=== PATIENT | female | born 1985 | race Caucasian/White ===

== ENCOUNTER 2016-10-20 19:05 | Emergency (ER) | payer OTHER ==
[2016-10-20 19:13] VITALS: BP 121/78; PULSE 84; RESP 18; TEMP 98
--- NOTE | 2016-10-20 19:31 | ED ---
General Adult HPI - General Chief complaint: Abdominal Pain Stated complaint: 9wks preg, leaking fluid Time Seen by Provider: 10/20/16 19:15 Source: patient, RN notes reviewed Mode of arrival: ambulatory Limitations: no limitations - History of Present Illness Initial comments: 31-year-old female presents to the emergency Department chief complaint of a discharge. Patient states she is 9 weeks . Patient states she has had a whitish clear discharge for the past 2 days. There is no pain there is no itching there is no odor. Patient denies any concern for STDs. He denies any bleeding she denies any abdominal pain states she has had some nausea and vomiting associated with this . Patient states she was concerned due to the discharge so she thought that she should be seen. Patient denies any recent fever, chills, shortness of breath, chest pain, back pain, abdominal pain , nausea vomiting, numbness or tingling, dysuria or hematuria, constipation or diarrhea, headaches or visual changes, or any other current symptoms. - Related Data Home Medications Medication Instructions Recorded Confirmed Acetaminophen Tab [Tylenol Tab] 500 mg PO Q6HR PRN 10/20/16 10/20/16 Allergies Allergy/AdvReac Type Severity Reaction Status Date / Time No Known Allergies Allergy Verified 10/20/16 19:28 Review of Systems ROS Statement: Those systems with pertinent positive or pertinent negative responses have been documented in the HPI. ROS Other: All systems not noted in ROS Statement are negative. Past Medical History Past Medical History: No Reported History History of Any Multi-Drug Resistant Organisms: None Reported Past Surgical History: Section Past Psychological History: No Psychological Hx Reported Smoking Status: Current every day smoker Past Alcohol Use History: None Reported Past Drug Use History: Marijuana General Exam Limitations: no limitations General appearance: alert, in no apparent distress Neck exam: Present: normal inspection. Absent: tenderness, meningismus, lymphadenopathy Respiratory exam: Present: normal lung sounds bilaterally. Absent: respiratory distress, wheezes, rales, rhonchi, stridor Cardiovascular Exam: Present: regular rate, normal rhythm, normal heart sounds. Absent: systolic murmur, diastolic murmur, rubs, gallop, clicks External exam: Present: normal external exam Speculum exam: Present: vaginal discharge (white) Neurological exam: Present: alert, oriented X3 Psychiatric exam: Present: normal affect, normal mood Skin exam: Present: warm, dry, intact, normal color. Absent: rash Course Vital Signs 10/20/16 19:09 Temperature 98.0 F Pulse Rate 84 Respiratory 18 Rate Blood Pressure 121/78 O2 Sat by Pulse 97 Oximetry Medical Decision Making - Medical Decision Making 31-year-old female presents for vaginal discharge in . The sinuses appears to consistently vaginal discharge in . We did discuss this with the patient. 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 We discussed return parameters all the questions. She stated that she understood and she is given plan. This time she'll be discharged home. - Lab Data Lab Results 10/20/16 Range/Units 19:25 Urine Color Yellow Urine Appearance Clear (Clear) Urine pH 5.5 (5.0-8.0) Ur Specific [place] 1.023 (1.001-1.035) Urine Protein Negative (Negative) Urine Glucose (UA) Negative (Negative) Urine Ketones 1+ H (Negative) Urine Blood Negative (Negative) Urine Nitrite Negative (Negative) Urine Bilirubin Negative (Negative) Urine Urobilinogen <2.0 (<2.0) mg/dL Ur Leukocyte Esterase Negative (Negative) Disposition Clinical Impression: Vaginal discharge during in first trimester Disposition: HOME SELF-CARE Condition: Stable Instructions: Vaginal Discharge (ED) Additional Instructions: Please follow up with family doctor if symptoms have not improved over the next two days. Please return to the emergency room if your symptoms increase or worsen or for any other concerns. Referrals: Mili Queen MD [Primary Care Provider] - 1-2 days Time of Disposition: 20:25
[2016-10-20 19:42] LABS: Appearance,Urine Clear (Clear); Bilirubin,Urine Negative (Negative); Glucose,Urine (UA) Negative (Negative); Ketones,Urine 1+ (Negative); Leukocyte Esterase,Urine Negative (Negative); Nitrite,Urine Negative (Negative); PH, Urine 5.5 (5.0-8.0); Protein,Urine Negative (Negative); Specific Gravity,Urine 1.023 (1.001-1.035); UA Billing (MACRO vs. MICRO) CHEM; Urobilinogen,Urine <2.0 mg/dL (<2.0)
== END 2016-10-20 20:28 | disposition home or self-care (01) ==
LOC: EC 19:05
DX: O99.89 Other specified diseases and conditions complicating pregnancy, childbirth and the puerperium (principal); N89.8 Other specified noninflammatory disorders of vagina; O99.331 Smoking (tobacco) complicating pregnancy, first trimester; F17.200 Nicotine dependence, unspecified, uncomplicated; Z3A.09 9 weeks gestation of pregnancy
CPT/HCPCS: 81003; 87070; 87086; 87205; 99284

== ENCOUNTER → 2016-11-30 | Outpatient (CLI) | payer OTHER ==
--- NOTE | 2016-11-30 15:28 | US ---
EXAMINATION TYPE: US OB >= 14 wk fetus DATE OF EXAM: 11/30/2016 COMPARISON: None CLINICAL HISTORY: 31-year-old female Z34.90 SUPERVISION OF NORMAL ; , smoker, confirm da tani TECHNIQUE: Transabdominal (TA) FINDINGS: GESTATIONAL AGE / DATING Physician Established: Not yet established Dates by LMP: patient unsure of LMP by one month (reported as 08/29/2016) Gestational age by LMP: 13 weeks 2 days EDC: 06/05/2017 Dates by First Scan: No previous this is first scan Dates by Current Scan: (15 weeks/2 days +/- 1 week 0 days) EDC: 05/22/2017 Beta HCG (if available): NA SURVEY IUP: Single PLACENTA: Posterior PREVIA: Marginal placenta previa. On the initial images, there is a focal anterior contraction along the lower uterine segment. YURIDIA: 11.1 cm Normal CERVICAL LENGTH (transabdominal: norm > 3.0cm): 3.1 cm BIOMETRY PRESENTATION: Breech LIE: Transverse with head maternal Left BPD: 2.9 cm 15 weeks / 1 day HC: 10.6 cm 15 weeks / 0 days AC: 8.9 cm 15 weeks / 1 day FL: 1.6 cm 14 weeks / 6 days ESTIMATED WEIGHT IN GRAMS: 111.2 grams ESTIMATED WEIGHT IN LBS/OZ: 0 lbs. 4 oz. WEIGHT PERCENTAGE BASED ON DAVID for LMP from patient: >97% HC/AC: 1.19 Normal FL/AC: 18.32 Normal HEART RATE: 146 bpm and assessed x 2 for regular rhythm due to active fetus RHYTHM: Normal ADA ACCOMMODATION CONSULTANT NOTES: Single, live, IUP,15 weeks/2 days, EDC: 05/22/2017, HR 146 BPM. IMPRESSION: 1. Single live intrauterine with average gestational age of 15 weeks 2 days by current ultr asound biometry. This is larger and frankly discordant with gestational age by estimated LMP. 2. Note marginal placenta previa. Follow-up recommended. 3. Complete survey recommended at 18-20 weeks.
--- NOTE | 2016-11-30 15:51 | US ---
EXAMINATION TYPE: US venous doppler duplex LE DATE OF EXAM: 11/30/2016 2:02 PM COMPARISON: NONE CLINICAL HISTORY: M79.669 LEG PAIN, SWELLING. Left lower lateral ankle swelling with prior skin redne ss at 15 weeks . SIDE PERFORMED: Bilateral TECHNIQUE: The lower extremity deep venous system is examined utilizing real time linear array sonog anna with graded compression, doppler sonography and color-flow sonography. VESSELS IMAGED: Common Femoral Vein Deep Femoral Vein Greater Saphenous Vein * Femoral Vein Popliteal Vein Small Saphenous Vein * Proximal Calf Veins (* superficial vessels) Grayscale, color doppler, spectral doppler imaging performed of the deep veins of the lower extremiti es. There is normal flow, compressibility, vascular waveforms. Right Leg: Negative for DVT Left Leg: Negative for DVT Left Greater Saphenous Vein wall echoes are noted but color flow patency is present and GSV compressi on is noted at upper level. IMPRESSION: No sonographic evidence of deep venous thrombosis of either lower extremity.
== END | disposition home or self-care (01) ==
LOC: RADUSWWP 12:59
PROVIDERS: ATTEND Obstetrics & Gynecology
DX: Z34.92 Encounter for supervision of normal pregnancy, unspecified, second trimester (principal); M79.662 Pain in left lower leg; Z3A.15 15 weeks gestation of pregnancy
CPT/HCPCS: 76805; 93970

== ENCOUNTER → 2017-02-22 | Outpatient (CLI) | payer OTHER ==
--- NOTE | 2017-02-23 08:04 | US ---
EXAMINATION TYPE: US OB anatomy transabd DATE OF EXAM: 02/22/2017 COMPARISON: NONE HISTORY: Z34.90 unspecified trimester normal supervision TECHNIQUE: Transabdominal (TA) EXAM MEASUREMENTS: GESTATIONAL AGE / DATING Physician Established: (27 weeks/2 days) EDC: 05/22/17 Dates by LMP: unknown Dates by First Scan: (27 weeks/2 days) EDC: 05/22/17 Dates by Current Scan for: (26 weeks/3 days) EDC: 05/28/17 SURVEY IUP: Single PLACENTA: Posterior PREVIA: Low Lying YURIDIA: 10.1 cm Normal CERVICAL LENGTH (transabdominal: norm > 3.0cm): 4.0 cm BIOMETRY PRESENTATION: Vertex LIE: Longitudinal BPD: 6.3 cm 25 weeks / 5 days HC: 24.5 cm 26 weeks / 4 days AC: 22.5 cm 26 weeks / 6 days FL: 5.1 cm 27 weeks / 3 days ESTIMATED WEIGHT IN GRAMS: 1008 grams ESTIMATED WEIGHT IN LBS/OZ: 2 lbs. 4 oz. WEIGHT PERCENTAGE BASED ON ESTABLISHED DATE: 26.0 % HC/AC: 1.09 Normal FL/AC: 22.86 Normal HEART RATE: 137 bpm RHYTHM: Normal ANATOMY SEEN (within normal limits): * Lateral Vent (< 1 cm) 0.6 cm * Cisterna Magna (< 1.1 cm) 0.5 cm * Nuchal Fold (< 0.6 cm) 0.4 cm * Cerebellum (varies with age) 3.2 cm Choroid Plexus (bilateral) - possible cystic area noted Midline Falx Cavus Septi Pellucidi Four Chamber Heart Outflow tracts: LVOT/RVOT Stomach Situs Nose / Lips Diaphragm Kidneys (bilateral) Bladder Cord Insert Three Vessel Cord Longitudinal Spine Transverse Spine Arms (bilateral) Legs (bilateral) IMPRESSION: Single viable IUP 26wks/3days with DAVID of 05/28/17. Low lying placenta. Follow-up ultrasound prior to delivery recommended to assess the placenta. Possible Choroid Plexus cyst
== END | disposition home or self-care (01) ==
LOC: RADUSWWP 16:23
PROVIDERS: ATTEND Obstetrics & Gynecology
DX: O44.42 Low lying placenta NOS or without hemorrhage, second trimester (principal); Z3A.26 26 weeks gestation of pregnancy
CPT/HCPCS: 76811

== ENCOUNTER → 2017-03-24 | Outpatient (CLI) | payer OTHER ==
--- NOTE | 2017-03-25 07:04 | US ---
EXAMINATION TYPE: US OB >= 14 wk fetus third trimester DATE OF EXAM: 03/24/2017 COMPARISON: Prior second trimester ultrasound November 30, 2016 CLINICAL HISTORY: Placenta Placement Z34.90Assess growth and placental placement, scheduled for 05/14/2017 TECHNIQUE: OBTA GESTATIONAL AGE / DATING Physician Established: (32 weeks/5 days) EDC: 05/14/2017 Dates by LMP: LMP unknown Dates by First Scan: ( 31weeks/ 4days) EDC: 05/22/2017 Dates by Current Scan: (30 weeks/5 days) EDC: 05/28/2017 SURVEY IUP: Single PLACENTA: Fundal PREVIA: No Previa YURIDIA: 14.8 cm Normal CERVICAL LENGTH (transabdominal: norm > 3.0cm): 3.0 cm BIOMETRY PRESENTATION: Vertex LIE: Longitudinal BPD: 7.5 cm 30 weeks / 1 days HC: 28.7 cm 31 weeks / 4 days AC: 25.9 cm 30 weeks / 1 days FL: 5.9 cm 30 weeks / 6 days ESTIMATED WEIGHT IN GRAMS: 1573 grams ESTIMATED WEIGHT IN LBS/OZ: 3 lbs. 7 oz. WEIGHT PERCENTAGE BASED ON ESTABLISHED DATES: 3% HC/AC: 1.1 Normal FL/AC: 23 Normal HEART RATE: 144 bpm RHYTHM: Normal Single live intrauterine gestation is redemonstrated. Normal cephalad presentation to fetus is seen c urrently. There is no ultrasound evidence for placenta previa. Amniotic fluid index is within normal limits. biometry measurements are congruent and felt within normal limits. IMPRESSION: As above
== END | disposition home or self-care (01) ==
LOC: RADUSWWP 16:26
PROVIDERS: ATTEND Obstetrics & Gynecology
DX: Z34.93 Encounter for supervision of normal pregnancy, unspecified, third trimester (principal); Z3A.32 32 weeks gestation of pregnancy
CPT/HCPCS: 76805

== ENCOUNTER → 2017-05-07 | Outpatient (CLI) | payer OTHER ==
--- NOTE | 2017-05-07 15:02 | US ---
EXAMINATION TYPE: US OB >= 14 wk fetus DATE OF EXAM: 05/07/2017 COMPARISON: None CLINICAL HISTORY: Z34.90 Encounter for supervision of normal TECHNIQUE: Transabdominal (TA) GESTATIONAL AGE / DATING Physician Established: (38 weeks/4 days) EDC: 05/17/17 Dates by LMP: unknown Dates by First Scan: (37 weeks/6 days) EDC: 05/22/17 Dates by Current Scan: (38 weeks/3 days) EDC: 05/18/17 SURVEY IUP: Single PLACENTA: Fundal PREVIA: No Previa YURIDIA: 14.8 cm Normal CERVICAL LENGTH (transabdominal: norm > 3.0cm): 3.0 cm BIOMETRY PRESENTATION: Vertex LIE: Longitudinal BPD: 9.2 cm 37 weeks / 4 days HC: 33.4 cm 38 weeks / 1 days AC: 35.6 cm 39 weeks / 4 days FL: 7.5 cm 38 weeks / 1 days ESTIMATED WEIGHT IN GRAMS: 3605 grams ESTIMATED WEIGHT IN LBS/OZ: 7 lbs. 15 oz. WEIGHT PERCENTAGE BASED ON ESTABLISHED DATES: 72.5% HC/AC: 0.94 Normal FL/AC: 20.97 Normal HEART RATE: 127 bpm RHYTHM: Normal Single viable IUP 38wks/3days with DAVID of 05/18/17 IMPRESSION: Single viable intrauterine corresponding to ultrasound age 38 weeks 3 days with estimated d ate of delivery 05/18/2017. Limited survey.
== END ==
LOC: RADUSWWP 13:37
PROVIDERS: ATTEND Obstetrics & Gynecology
DX: Z34.90 Encounter for supervision of normal pregnancy, unspecified, unspecified trimester (principal)
CPT/HCPCS: 76805

== ENCOUNTER → 2018-09-02 | Outpatient (CLI) | payer OTHER ==
--- NOTE | 2018-09-02 10:57 | XR ---
EXAMINATION TYPE: XR cervical spine limited DATE OF EXAM: 09/02/2018 COMPARISON: NONE HISTORY: Pain TECHNIQUE: 3 views are submitted. FINDINGS: The odontoid is intact. There are no compression deformities. The prevertebral soft tissue structur es are within normal limits. Hypertrophic and degenerative change of the spine noted. The 2 mm anter olisthesis of C3 on C4. Anterior hypertrophic spurring noted. IMPRESSION: 1. Multilevel degenerative disc disease with 2 mm anterolisthesis C3 on C4. MRI recommended..
--- NOTE | 2018-09-02 10:58 | XR ---
EXAM TYPE: LUMBAR SPINE X RAY SERIES COMPARISON: NONE HISTORY: Pain TECHNIQUE: 4 views are submitted. FINDINGS: Alignment is anatomic. The pedicles are intact. The transverse processes are intact. There is no s pondylolisthesis. Facet arthropathy L4-5 and L5-S1. IMPRESSION: 1. Facet arthropathy L4-5 and L5-S1 consider follow-up MRI.
== END | disposition home or self-care (01) ==
LOC: RADXRMAIN 10:28
PROVIDERS: ATTEND Family Medicine
DX: M50.31 Other cervical disc degeneration, high cervical region (principal); M43.12 Spondylolisthesis, cervical region; M46.97 Unspecified inflammatory spondylopathy, lumbosacral region
CPT/HCPCS: 72040; 72100

== ENCOUNTER 2018-10-01 00:12 | Emergency (ER) | payer OTHER ==
[2018-10-01 00:20] VITALS: RESP 18
[2018-10-01] MEDS ORDERED: MAG HYDROX/AL HYDROX/SIMETH 30 ML CUP PO STA (01:20)
[2018-10-01] MEDS ORDERED: KETOROLAC 30 MG/ML 1 ML VIAL IVP STA (01:20)
--- NOTE | 2018-10-01 02:26 | XR ---
EXAM: XR Chest, 2 Views CLINICAL HISTORY: ITS.REASON XR Reason: Chest Pain TECHNIQUE: Frontal and lateral views of the chest. COMPARISON: 11/23/13. FINDINGS: Lungs: Mild perihilar/infrahilar opacities, possible atelectasis. Pleural space: No significant pleural effusion or pneumothorax. Heart: Unremarkable. Mediastinum: Unremarkable. Bones/joints: No acute fracture. IMPRESSION: Mild perihilar/infrahilar opacities, possible atelectasis. Correlate clinically to exclude developing infiltrate.
[2018-10-01 03:03] LABS: Basophils # (A) 0.1 k/uL (0-0.2); Basophils % (A) 0 %; Eosinophils # (A) 0.2 k/uL (0-0.7); Eosinophils % (A) 2 %; HCT 35.9 % (34.0-46.0); HGB 12.3 gm/dL (11.4-16.0); Lymphocytes # (A) 4.6 k/uL (1.0-4.8); Lymphocytes % (A) 42 %; MCH 29.4 pg (25.0-35.0); MCHC 34.4 g/dL (31.0-37.0); MCV 85.4 fL (80.0-100.0); Monocytes # (A) 0.6 k/uL (0-1.0); Monocytes % (A) 6 %; Neutrophils # (A) 5.5 k/uL (1.3-7.7); Neutrophils % (A) 50 %; Platelet Count 309 k/uL (150-450); RDW 15.1 % (11.5-15.5); WBC 11.2 k/uL (3.8-10.6)
[2018-10-01 03:17] LABS: D-Dimer 0.21 mg/L FEU (<0.60); Partial Thromboplastin Time 26.9 sec (22.0-30.0); Prothrombin Time 10.7 sec (9.0-12.0)
[2018-10-01 03:19] LABS: ALT 20 U/L (9-52); AST 27 U/L (14-36); African American GFR (CKD) >90 (>60 ml/min/1.73 sqM); Albumin 4.2 g/dL (3.5-5.0); Alkaline Phosphatase 50 U/L (38-126); Anion Gap 7 mmol/L; Blood Urea Nitrogen 14 mg/dL (7-17); Calcium 9.5 mg/dL (8.4-10.2); Carbon Dioxide 24 mmol/L (22-30); Chloride 108 mmol/L (98-107); Glucose 122 mg/dL (74-99); Magnesium 1.8 mg/dL (1.6-2.3); Potassium 3.6 mmol/L (3.5-5.1); Sodium 139 mmol/L (137-145); Total Bilirubin 0.4 mg/dL (0.2-1.3); Total Protein 6.7 g/dL (6.3-8.2)
[2018-10-01] MEDS ORDERED: guaiFENesin-DM 600/30MG 1 EACH TAB.ER.12H PO STA (03:49)
[2018-10-01] MEDS ORDERED: AZITHROMYCIN 500 MG TAB PO STA (03:49)
--- NOTE | 2018-10-01 03:49 | ED ---
General Adult HPI - General Chief complaint: Chest Pain Stated complaint: chest pain Time Seen by Provider: 10/01/18 00:50 Source: patient Mode of arrival: ambulatory Limitations: no limitations - History of Present Illness Initial comments: 33-year-old female patient presents to the emergency department today for evaluation of substernal chest pain. Patient states pain is radiating through to her back. Patient states she has developed a cough today and is coughing up clear sputum. Denies any fever or chills. Denies any shortness of breath. Denies history of similar symptoms. Denies any cigarette smoking. States that she does have family history of coronary artery disease in her father and grandmother. She denies any nausea, or vomiting. Denies abdominal pain, constipation, or diarrhea. Patient denies any recent rash, numbness, tingling, dizziness, weakness, hematuria, dysuria, urinary urgency, urinary frequency, headache, visual changes, or any other complaints. - Related Data Home Medications Medication Instructions Recorded Confirmed Acetaminophen Tab [Tylenol Tab] 500 mg PO Q6HR PRN 10/20/16 10/20/16 Previous Rx's Medication Instructions Recorded Azithromycin [Zithromax Z-pack] 0 mg PO DIRECTED #6 tab 10/01/18 guaiFENesin-DM 600/30MG [Mucinex 1 each PO Q12HR #10 tab.er.12h 10/01/18 Dm] Allergies Allergy/AdvReac Type Severity Reaction Status Date / Time No Known Allergies Allergy Verified 10/20/16 19:28 Review of Systems ROS Statement: Those systems with pertinent positive or pertinent negative responses have been documented in the HPI. ROS Other: All systems not noted in ROS Statement are negative. Past Medical History Past Medical History: No Reported History History of Any Multi-Drug Resistant Organisms: None Reported Past Surgical History: Section Past Psychological History: No Psychological Hx Reported Smoking Status: Current every day smoker Past Alcohol Use History: None Reported Past Drug Use History: Marijuana General Exam Limitations: no limitations General appearance: alert, in no apparent distress, other (Physical well- developed, well-nourished adult female patient in no acute distress. Vital signs upon presentation are temperature 98.0F, pulse 93, respirations 18, blood pressure 114/75, pulse ox 100% on room air.) Eye exam: Present: normal appearance, PERRL, EOMI. Absent: scleral icterus, conjunctival injection, periorbital swelling ENT exam: Present: normal exam, normal oropharynx, mucous membranes moist Respiratory exam: Present: normal lung sounds bilaterally. Absent: respiratory distress, wheezes, rales, rhonchi, stridor Cardiovascular Exam: Present: regular rate, normal rhythm, normal heart sounds. Absent: systolic murmur, diastolic murmur, rubs, gallop, clicks GI/Abdominal exam: Present: soft, normal bowel sounds. Absent: distended, tenderness, guarding, rebound, rigid Neurological exam: Present: alert, oriented X3, CN II-XII intact Psychiatric exam: Present: normal affect, normal mood Skin exam: Present: warm, dry, intact, normal color. Absent: rash Course Vital Signs 10/01/18 10/01/18 10/01/18 00:17 00:45 03:57 Temperature 98.0 F 98 F Pulse Rate 93 68 Pulse Rate [ 80 Fishing Captain ] Respiratory 18 18 Rate Blood Pressure 114/75 113/60 O2 Sat by Pulse 100 98 Oximetry EKG Findings - EKG Comments: EKG Findings:: EKG obtained at 00 46 shows normal sinus rhythm with a ventricular rate is 76, W[place] interval 116, QRS duration 106, QT 406, QTc 456. No evidence of ST elevation or depression. Medical Decision Making - Medical Decision Making 33-year-old female patient presented to the emergency department today for evaluation of substernal chest pain and cough. Physical examination revealed clear equal lung sounds. Labs reviewed and did reveal elevated white blood cell count of 11.2. D-dimer was 0.21. Troponin negative. Chest x-ray showed developing infiltrates in the infrahilar/perihilar region. I did discuss findings and results with the patient. Given cough and elevated white blood cell count with x-ray findings we'll treat for pneumonia with azithromycin. She'll be given a prescription for Mucinex DM. She is instructed to follow-up with her primary care physician for recheck in 1-2 days. Return parameters were discussed in detail. She verbalizes understanding and agrees with this plan. - Lab Data Result diagrams: 10/01/18 02:55 10/01/18 02:55 Lab Results 10/01/18 10/01/18 10/01/18 Range/Units 02:55 02:55 02:55 WBC 11.2 H (3.8-10.6) k/uL RBC 4.20 (3.80-5.40) m/uL Hgb 12.3 (11.4-16.0) gm/dL Hct 35.9 (34.0-46.0) % MCV 85.4 (80.0-100.0) fL MCH 29.4 (25.0-35.0) pg MCHC 34.4 (31.0-37.0) g/dL RDW 15.1 (11.5-15.5) % Plt Count 309 (150-450) k/uL Neutrophils % 50 % Lymphocytes % 42 % Monocytes % 6 % Eosinophils % 2 % Basophils % 0 % Neutrophils # 5.5 (1.3-7.7) k/uL Lymphocytes # 4.6 (1.0-4.8) k/uL Monocytes # 0.6 (0-1.0) k/uL Eosinophils # 0.2 (0-0.7) k/uL Basophils # 0.1 (0-0.2) k/uL PT 10.7 (9.0-12.0) sec INR 1.0 (<1.2) APTT 26.9 (22.0-30.0) sec D-Dimer 0.21 (<0.60) mg/L FEU Sodium 139 (137-145) mmol/L Potassium 3.6 (3.5-5.1) mmol/L Chloride 108 H (98-107) mmol/L Carbon Dioxide 24 (22-30) mmol/L Anion Gap 7 mmol/L BUN 14 (7-17) mg/dL Creatinine 0.69 (0.52-1.04) mg/dL Est GFR (CKD-EPI)AfAm >90 (>60 ml/min/1.73 sqM) Est GFR (CKD-EPI)NonAf >90 (>60 ml/min/1.73 sqM) Glucose 122 H (74-99) mg/dL Calcium 9.5 (8.4-10.2) mg/dL Magnesium 1.8 (1.6-2.3) mg/dL Total Bilirubin 0.4 (0.2-1.3) mg/dL AST 27 (14-36) U/L ALT 20 (9-52) U/L Alkaline Phosphatase 50 (38-126) U/L Troponin I (0.000-0.034) ng/mL Total Protein 6.7 (6.3-8.2) g/dL Albumin 4.2 (3.5-5.0) g/dL 10/01/18 Range/Units 02:55 WBC (3.8-10.6) k/uL RBC (3.80-5.40) m/uL Hgb (11.4-16.0) gm/dL Hct (34.0-46.0) % MCV (80.0-100.0) fL MCH (25.0-35.0) pg MCHC (31.0-37.0) g/dL RDW (11.5-15.5) % Plt Count (150-450) k/uL Neutrophils % % Lymphocytes % % Monocytes % % Eosinophils % % Basophils % % Neutrophils # (1.3-7.7) k/uL Lymphocytes # (1.0-4.8) k/uL Monocytes # (0-1.0) k/uL Eosinophils # (0-0.7) k/uL Basophils # (0-0.2) k/uL PT (9.0-12.0) sec INR (<1.2) APTT (22.0-30.0) sec D-Dimer (<0.60) mg/L FEU Sodium (137-145) mmol/L Potassium (3.5-5.1) mmol/L Chloride (98-107) mmol/L Carbon Dioxide (22-30) mmol/L Anion Gap mmol/L BUN (7-17) mg/dL Creatinine (0.52-1.04) mg/dL Est GFR (CKD-EPI)AfAm (>60 ml/min/1.73 sqM) Est GFR (CKD-EPI)NonAf (>60 ml/min/1.73 sqM) Glucose (74-99) mg/dL Calcium (8.4-10.2) mg/dL Magnesium (1.6-2.3) mg/dL Total Bilirubin (0.2-1.3) mg/dL AST (14-36) U/L ALT (9-52) U/L Alkaline Phosphatase (38-126) U/L Troponin I <0.012 (0.000-0.034) ng/mL Total Protein (6.3-8.2) g/dL Albumin (3.5-5.0) g/dL - Radiology Data Radiology results: report reviewed, image reviewed 2 views of the chest are obtained. Report was reviewed in its entirety. Impression by Dr. Chino shows mild perihilar/infrahilar opacities. Disposition Clinical Impression: Chest pain, Pneumonia Disposition: HOME SELF-CARE Condition: Good Instructions (If sedation given, give patient instructions): Chest Pain (ED), Pneumonia (ED) Additional Instructions: Complete antibiotic prescription and full. Take Tylenol Motrin for pain control. Follow-up with her primary care physician for recheck in 1-2 days. Return to the emergency department immediately for any new, worsening, or concerning symptoms. Prescriptions: guaiFENesin-DM 600/30MG [Mucinex Dm] 1 each PO Q12HR #10 tab.er.12h Azithromycin [Zithromax Z-pack] 0 mg PO DIRECTED #6 tab Is patient prescribed a controlled substance at d/c from ED?: No Referrals: Bunny Soto MD [Primary Care Provider] - 1-2 days Time of Disposition: 03:49
[2018-10-01 03:58] VITALS: BP 113/60; TEMP 98
[2018-10-01 04:00] VITALS: PULSE 80
== END 2018-10-01 04:02 | disposition home or self-care (01) ==
LOC: EC 00:12
DX: J18.9 Pneumonia, unspecified organism (principal); F17.200 Nicotine dependence, unspecified, uncomplicated
CPT/HCPCS: 36415; 93005; 85379; 80053; 83735; 84484; 85025; 85610; 85730; 71046; 99285; 96374; J1885

== ENCOUNTER 2021-04-11 22:07 | Emergency (ER) | payer OTHER ==
[2021-04-11] MEDS ORDERED: PROPARACAINE 0.5% OPHTH DROPS 15 ML BTL BOTH EYES STA (22:31)
[2021-04-11] MEDS ORDERED: FLUORESCEIN STRIPS 1 MG STRIP LEFT EYE ONE (23:22)
[2021-04-11] MEDS ORDERED: DIPH,PERTUS(ACELL)TETVAC-LF 0.5 ML VIAL IM ONE (23:33)
[2021-04-11] MEDS ORDERED: IBUPROFEN 400 MG TAB PO STA (23:33)
--- NOTE | 2021-04-11 23:36 | ED ---
General Adult HPI - General Chief complaint: Eye Problems Stated complaint: Eye Injury Time Seen by Provider: 04/11/21 23:30 Source: patient, family, RN notes reviewed, old records reviewed Mode of arrival: ambulatory Limitations: no limitations - History of Present Illness Initial comments: 35-year-old female presents to the emergency room after sustaining an injury to her left eye with cleaning out her garage tonight. Patient states that she walked into a pole that poked her in the left eye. She states that she has pain and blurred vision. -: hour(s) Location: eyes, left Radiation: non-radiation Quality: constant Consistency: constant Associated Symptoms: denies other symptoms Treatments Prior to Arrival: none - Related Data Home Medications Medication Instructions Recorded Confirmed Acetaminophen Tab [Tylenol Tab] 500 mg PO Q6HR PRN 10/20/16 10/20/16 Previous Rx's Medication Instructions Recorded Azithromycin [Zithromax Z-pack (6 0 mg PO DIRECTED #6 tab 10/01/18 tabs)] guaiFENesin-DM 600/30MG [Mucinex 1 each PO Q12HR #10 tab.er.12h 10/01/18 Dm] Erythromycin Ophth Oint [Romycin 1 applic LEFT EYE QID 5 Days #1 gm 04/12/21 Ophth Oint] Allergies Allergy/AdvReac Type Severity Reaction Status Date / Time No Known Allergies Allergy Verified 04/11/21 22:17 Review of Systems ROS Statement: Those systems with pertinent positive or pertinent negative responses have been documented in the HPI. ROS Other: All systems not noted in ROS Statement are negative. Past Medical History Past Medical History: No Reported History History of Any Multi-Drug Resistant Organisms: None Reported Past Surgical History: Section Past Psychological History: No Psychological Hx Reported Smoking Status: Current every day smoker Past Alcohol Use History: None Reported Past Drug Use History: Marijuana General Exam Limitations: no limitations General appearance: alert, in no apparent distress Eye exam: Present: PERRL, EOMI, conjunctival injection, other (Subconjunctival hemorrhage). Absent: scleral icterus, nystagmus, periorbital swelling Expanded Eyelids: Normal Inspection: Left Pupils: Regular, Round: Left Sclera/Conjunctival: Hemorrhage: Left Anterior chamber: Normal Inspection: Left Neck exam: Present: full ROM Cardiovascular Exam: Present: regular rate Neurological exam: Present: alert, oriented X3 Psychiatric exam: Present: normal affect, normal mood Skin exam: Present: warm, dry, intact, normal color. Absent: cyanosis, diaphoretic Course Vital Signs 04/11/21 04/12/21 22:10 00:19 Temperature 97.9 F 98.0 F Pulse Rate 100 92 Respiratory 24 16 Rate Blood Pressure 170/87 165/77 O2 Sat by Pulse 99 98 Oximetry Medical Decision Making - Medical Decision Making Patient presents with left eye injury after being poked in the eye by a pole in her garage tonight. There is an abrasion to the inner canthus of the left eye, there is also evidence of a subconjunctival hemorrhage. She does have blurred vision there is no evidence of corneal abrasion or foreign body. Patient was placed on erythromycin ointment due to the abrasion to the inner canthus of the left eye. She was given a referral to ophthalmology. Tetanus shot was updated at this visit. Disposition Clinical Impression: Subconjunctival hemorrhage of left eye Disposition: HOME SELF-CARE Condition: Good Instructions (If sedation given, give patient instructions): Subconjunctival Hemorrhage (ED) Additional Instructions: Use antibiotic eye ointment as prescribed. Follow-up with ophthalmology on Wednesday. Tylenol and Motrin as needed for pain. Prescriptions: Erythromycin Ophth Oint [Romycin Ophth Oint] 1 applic LEFT EYE QID 5 Days #1 gm Is patient prescribed a controlled substance at d/c from ED?: No Referrals: Bunny Soto MD [Primary Care Provider] - 1-2 days Samir Burdick MD [STAFF PHYSICIAN] - 1-2 days Time of Disposition: 23:56
[2021-04-12 00:20] VITALS: BP 165/77; PULSE 92; RESP 16; TEMP 98
== END 2021-04-12 00:19 | disposition home or self-care (01) ==
LOC: EC 22:07
DX: H11.32 Conjunctival hemorrhage, left eye (principal); F17.200 Nicotine dependence, unspecified, uncomplicated; X58.XXXA Exposure to other specified factors, initial encounter
CPT/HCPCS: 90471; 90715; 99283